=== PATIENT | female | born 1950 | race Caucasian/White ===

== ENCOUNTER 2018-04-10 18:20 | Emergency (ER) | payer BC ==
[2018-04-10 19:03] VITALS: RESP 18
[2018-04-10] MEDS ORDERED: RABIES VACCINE (PCEC) 2.5 UNIT KIT IM ONE (19:15)
[2018-04-10] MEDS ORDERED: AMOXIC-POT CLAV 875MG STARTER 2 EACH TABLET PO STA (19:16)
[2018-04-10] MEDS ORDERED: RABIES IMMUNE GLOB 150 UNIT/ML 10 ML VIAL IM ONE (19:16)
--- NOTE | 2018-04-10 19:38 | ED ---
Wound/Laceration HPI - General Chief Complaint: Wound/Laceration Stated Complaint: animal bite to finger Time Seen by Provider: 04/10/18 19:06 Source: patient, RN notes reviewed, old records reviewed Mode of arrival: ambulatory Limitations: no limitations - History of Present Illness Initial Comments: 67-year-old female presents emergency Department chief complaint of raccoon bite to her index finger on Monday. Patient reports that she was sent in from the health department to get rabies vaccines. She reports that she thought it was a cat in her garage and was trying to get it out, and the raccoon turned around and bit her.Patient denies any recent fever, chills, shortness of breath , chest pain, back pain, abdominal pain, nausea vomiting, numbness or tingling, dysuria or hematuria, constipation or diarrhea, headaches or visual changes, or any other current symptoms - Related Data Home Medications Medication Instructions Recorded Confirmed Glucosamine Sulfate 1,500 mg PO DAILY 04/10/18 04/10/18 Multivitamins, Thera [Multivitamin 1 tab PO DAILY 04/10/18 04/10/18 (formulary)] Simvastatin [Zocor] 20 mg PO HS 04/10/18 04/10/18 buPROPion HCL [Wellbutrin XL] 300 mg PO DAILY 04/10/18 04/10/18 glyBURIDE [Diabeta] 5 mg PO AC-BRKFST 04/10/18 04/10/18 metFORMIN HCL [Glucophage] 500 mg PO HS 04/10/18 04/10/18 sitaGLIPtin PHOS/metFORMIN HCL 1 tab PO DAILY 04/10/18 04/10/18 [Janumet Xr 100-1,000 mg Tablet] Previous Rx's Medication Instructions Recorded Amoxic-Pot Clav 875-125Mg 1 tab PO Q12HR #20 tablet 04/10/18 [Augmentin 875-125] Allergies Allergy/AdvReac Type Severity Reaction Status Date / Time No Known Allergies Allergy Verified 04/10/18 19:26 Review of Systems ROS Statement: Those systems with pertinent positive or pertinent negative responses have been documented in the HPI. ROS Other: All systems not noted in ROS Statement are negative. Past Medical History Past Medical History: Dementia, Hyperlipidemia History of Any Multi-Drug Resistant Organisms: None Reported Past Surgical History: Section, Cholecystectomy Additional Past Surgical History / Comment(s): Open heart at 9 years old, Diverticulum removen from throat Past Psychological History: No Psychological Hx Reported Smoking Status: Never smoker Past Alcohol Use History: Occasional Past Drug Use History: None Reported General Exam - General Exam Comments Initial Comments: Well-appearing 67-year-old female. No distress. Limitations: no limitations General appearance: alert, in no apparent distress Head exam: Present: atraumatic, normocephalic, normal inspection Eye exam: Present: normal appearance, PERRL, EOMI. Absent: scleral icterus, conjunctival injection, periorbital swelling ENT exam: Present: normal exam, mucous membranes moist Neck exam: Present: normal inspection. Absent: tenderness, meningismus, lymphadenopathy Respiratory exam: Present: normal lung sounds bilaterally. Absent: respiratory distress, wheezes, rales, rhonchi, stridor Cardiovascular Exam: Present: regular rate, normal rhythm, normal heart sounds. Absent: systolic murmur, diastolic murmur, rubs, gallop, clicks GI/Abdominal exam: Present: soft, normal bowel sounds. Absent: distended, tenderness, guarding, rebound, rigid Extremities exam: Present: normal inspection, full ROM, normal capillary refill , other (Patient has closed bite hoskins over the right index finger. Scabbed over.). Absent: tenderness, pedal edema, joint swelling, calf tenderness Back exam: Present: normal inspection Neurological exam: Present: alert, oriented X3, CN II-XII intact Psychiatric exam: Present: normal affect, normal mood Skin exam: Present: warm, dry, intact, normal color. Absent: rash Course Vital Signs 04/10/18 18:58 Temperature 98.3 F Pulse Rate 71 Respiratory 18 Rate Blood Pressure 139/79 O2 Sat by Pulse 98 Oximetry Medical Decision Making - Medical Decision Making 67-year-old female presents emergency department today complaining of a raccoon bite over the middle finger. Patient states that 2 days ago she was bit in her garage Patient thought was a cat that after the light came on her right she realizes a raccoon. Patient will be started on Augmentin. No sign of infection at this time. She is full range of motion of the finger and is neurovascularly intact. Patient was given rabies prophylaxis. I discussed that she needs to follow-up and get a repeat rabies vaccines and is 01/03/2014. Patient agrees to treatment plan will comply. Return parameters were discussed. Disposition Clinical Impression: Raccoon bite, Rabies, need for prophylactic vaccination against Disposition: HOME SELF-CARE Condition: Good Instructions: Animal Bite (ED) Additional Instructions: Patient is to follow-up with primary care provider. Take all the antibiotics as prescribed. Please return on days 3, 7 and 14 for repeat doses of the rabies vaccine. Return to the emergency department if any alarming signs or symptoms occur. Prescriptions: Amoxic-Pot Clav 875-125Mg [Augmentin 875-125] 1 tab PO Q12HR #20 tablet Is patient prescribed a controlled substance at d/c from ED?: No When asked, does pt state using other controlled substances?: No If prescribed controlled substance>3 days was MAPS reviewed?: No If opioid is for acute pain is fill amount 7 days or less?: No If Rx opioid, was Start Talking consent form obtained?: No Referrals: Nasrin Malcolm DO [Primary Care Provider] - 1-2 days Time of Disposition: 19:43
[2018-04-10 20:19] VITALS: BP 132/68; PULSE 62; TEMP 97
== END 2018-04-10 20:20 | disposition home or self-care (01) ==
LOC: EC 18:20
DX: S61.250A Open bite of right index finger without damage to nail, initial encounter (principal); E78.5 Hyperlipidemia, unspecified; Z23 Encounter for immunization; Z79.84 Long term (current) use of oral hypoglycemic drugs; Z79.899 Other long term (current) drug therapy; W55.51XA Bitten by raccoon, initial encounter; Y92.59 Other trade areas as the place of occurrence of the external cause
CPT/HCPCS: 90375; 90471; 90675; 96372; 99283